=== PATIENT | female | born 1950 | race Two or more races ===

== ENCOUNTER → 2020-04-01 08:00 | Outpatient (CLI) | payer OTHER | END | disposition home or self-care (01) | LOC: LAB 08:00 → ADM 08:45 → EDSTATUS 04-08 08:45 → AMB-ENDOS 04-08 08:45 → ADM 04-08 08:45 | PROVIDERS: ATTEND Colon & Rectal Surgery | DX: U07.1 COVID-19 (principal); D12.2 Benign neoplasm of ascending colon; K92.1 Melena; Z86.010 Personal history of colon polyps; K29.00 Acute gastritis without bleeding; K21.9 Gastro-esophageal reflux disease without esophagitis ==

== ENCOUNTER 2021-01-20 06:35 | Day surgery (SDC) | payer OTHER | END 2021-01-20 12:15 | disposition home or self-care (01) | LOC: AMB-ENDOS 06:35 | PROVIDERS: ATTEND Colon & Rectal Surgery | DX: K62.89 Other specified diseases of anus and rectum (principal); K29.50 Unspecified chronic gastritis without bleeding; K44.9 Diaphragmatic hernia without obstruction or gangrene; Z20.822 Contact with and (suspected) exposure to COVID-19 ==